=== PATIENT | female | born 1995 | race Hispanic/Latino ===

== ENCOUNTER 2017-09-01 15:07 | Emergency (ER) | payer MEDICAID ==
[2017-09-01 15:44] VITALS: BMI 20.9
--- NOTE | 2017-09-01 17:00 | OBHP ---
Datetime: 09/01/2017 16:51 IP Adm Impression: , intrauterine ; No Active Labor IP Admit Plan: Observation/Evaluation; Discharge home Admit Comment, IP Provider: Patient is a 22-year-old 2 para 1 estimated gestational age 26 w eeks patient presents to the emergency department complaining of decreased movement lower abdom inal discomfort for several days patient denies any dysuria frequency hesitancy patient denies any va ginal bleeding patient reports her care has been intermittent due to insurance issues. Past medical history asthma Medications inhaler Social history denies alcohol tobacco use care previous normal spontaneous vaginal delivery 2016 male full-term care with Dr. Iban Lindo Review of systems patient denies headache chest pain shortness of breath palpitations nausea vomit ing diarrhea vaginal bleeding. Cold intolerance easy bruisability musculoskeletal or neurological com plaints Vital signs stable afebrile Physical exam see notes Intrauterine at 26 weeks Maternal discomfort related to intrauterine gestation Bedside sonogram vertex presentation and adequate fluid good movement. tone Patient was advised to follow up with Dr. Iban Lindo labor precautions provided Pelvic Type - PN: Adequate Extremities - PN: Normal Abdomen - PN: Normal Back - PN: Normal Breast - PN: Normal Lungs - PN: Normal Heart - PN: Normal Thyroid - PN: Normal Neurologic - PN: Normal HEENT - PN: Normal General - PN: Normal FHR - Baseline A Provider: 145 Gestation - Est Wks by US: 26.0 Pool Provider: Negative EGA AdmitDate IP: 27.2 Vital Signs Provider: Reviewed IP Chief Complaint: Maternal discomfort NICHD Variability Prov Fetus A: Moderate 6-25bpm NICHD Accel Fetus A IP Provider: 10X10 FHR Category Provider Fetus A: Category I NICHD Decel Fetus A IP Provider: None Dilatation, Provider: 0 Effacement, Provider: 0 Station, Provider: 0 Genitourinary Exam: Normal DTRs - PN: Normal
[2017-09-01 21:48] VITALS: BP 90/52; PULSE 89
== END 2017-09-01 17:00 | disposition home or self-care (01) ==
LOC: H.EROB2 15:07
DX: O26.92 Pregnancy related conditions, unspecified, second trimester (principal); R10.2 Pelvic and perineal pain; Z3A.26 26 weeks gestation of pregnancy; O36.8120 Decreased fetal movements, second trimester, not applicable or unspecified

== ENCOUNTER 2017-11-21 09:19 | Emergency (ER) | payer MEDICAID ==
[2017-11-21 12:37] VITALS: BMI 23.6
[2017-11-21 17:32] VITALS: BP 107/62; PULSE 95; RESP 17; TEMP 98.2; O2SAT 99
== END 2017-11-21 13:00 | disposition home or self-care (01) ==
LOC: H.EROB2 09:19 → H.L&D 09:37 → H.EROB2 13:00
DX: O47.1 False labor at or after 37 completed weeks of gestation (principal); O26.93 Pregnancy related conditions, unspecified, third trimester; R10.2 Pelvic and perineal pain; Z3A.38 38 weeks gestation of pregnancy

== ENCOUNTER 2017-11-24 20:35 | Inpatient (IN) | payer MEDICAID ==
[2017-11-24] MEDS ORDERED: Lactated Ringer's 1,000 ML IV SCH (21:45)
[2017-11-24] MEDS ORDERED: Oxytocin 30 UNITS in Sodium Chloride 0.9% 500 ML IV SCH (21:45)
[2017-11-24 22:12] LABS: BASO % 0.3 % (0.0-2.0); EOS # 0.1 K/uL (0.0-0.7); EOS % 0.8 % (0.0-4.0); HEMOGLOBIN 11.5 g/dL (12.0-16.0); LYMPH # 1.5 K/uL (1.0-4.3); LYMPH % 13.2 % (20.0-40.0); MEAN CELL VOLUME 88.4 fl (81.0-99.0); MEAN CORPUSCULAR HEMOGLOBIN 28.9 pg (27.0-31.0); MEAN CORPUSCULAR HGB CONC 32.7 g/dL (33.0-37.0); MEAN PLATELET VOLUME 9.5 fl (7.2-11.7); MONO # 0.9 K/uL (0.0-0.8); MONO % 7.5 % (0.0-10.0); NEUT % 78.2 % (50.0-75.0); RBC 3.99 Mil/uL (3.80-5.20); RED CELL DISTRIBUTION WIDTH 13.8 % (11.5-14.5); WHITE BLOOD COUNT 11.6 K/uL (4.8-10.8)
[2017-11-25 06:38] LABS: HEMOGLOBIN 11.5 g/dL (12.0-16.0); MEAN CELL VOLUME 88.5 fl (81.0-99.0); MEAN CORPUSCULAR HEMOGLOBIN 28.6 pg (27.0-31.0); MEAN CORPUSCULAR HGB CONC 32.4 g/dL (33.0-37.0); RED CELL DISTRIBUTION WIDTH 13.5 % (11.5-14.5); WHITE BLOOD COUNT 17.9 K/uL (4.8-10.8)
[2017-11-25] MEDS ORDERED: Influenza Vaccine 18yr & older 0.5 ML/45 MCG SYR IM ONE (08:50)
[2017-11-25] MEDS ORDERED: Pneumococcal 23-Valent Vaccine IM ONE (09:07)
--- NOTE | 2017-11-26 08:06 | OBPPN ---
Datetime: 11/26/2017 06:37 PP Pain Prov: Within normal limits PP Nausea Prov: Denies PP Flatus Prov: Yes PP BM Prov: No PP Breasts Prov: Not Done PP Heart Prov: Normal PP Lungs Prov: Normal PP Abdomen/Uterus Prov: Normal PP Lochia Prov: Normal PP Vulva/Perineum Prov: Not Done PP CVA Tenderness Prov: Normal PP Extremities Prov: Normal PP C/S Incision Prov: Not Applicable PP Progress Prov: Abnormal PP Comments Phys Exam Prov: pt elects to only formula feed. PP Impression Prov: Normal progression PP Plan Prov: Continue present management PP Progress Note Prov: PPD 1 S: 22 yo s/p NVD on 11/25/2017 at 01:57. Pt. is seen and examined at bedside this AM. No overnight events. Pt reports occasional abdominal pain, but well controlled with pain meds. Pt is amb ulating without any difficulties. Bottle feeding baby. Tolerating PO diet. Lochia is similar to light menses in volume. Voiding freely, no bowel movement, but passing gas per rectum. Denies fever, chill s, diarrhea, nausea, vomiting, chest pain, dyspnea, and dizziness. O: VS: stable GEN: NAD Cardio: S1S2, no M/G/R Resp: clear breath sounds b/l Abdomen: BS+, NT, Uterus is firm and at the level of the umbilicus. EXT: No edema, calves nontender NEURO/PSYCHI: AAOx3, no grossly focal deficit, preserved affect and mood. Assessment/Plan: 22 yo s/p NVD on 11/25/2017 at 01:57. Pt remains afebrile, tolerating pa in with medication, tolerating PO intake, doing well on PPD1. OOB with caution SCDs for DVT prophylaxis, pt ambulating Ibuprofen 600mg for pain. Colace 100mg PO BID/Senokot 17.2 mg qHS for constipation Encourage ambulating and consider F/u CBC post-delivery: pending Anticipated d/c to home, 11/27/2017. Case dw OB attending --- Luke Villatoro MD PGY-1 OB Hospitalist Addendum: Pt seen and examined by me. Agree w/ above. PPD1 s/p , doing well, bottle feeding. Continue current care. (ES) IP PP Procedures: None Vital Signs Provider PP: Reviewed; Within Normal Limits
[2017-11-26] MEDS ORDERED: Measles, Mumps, and Rubella 0.5 ML VIAL SC ONE (09:07)
[2017-11-27] MEDS ORDERED: Measles, Mumps, and Rubella 0.5 ML VIAL SC ONE (09:07)
--- NOTE | 2017-11-27 13:14 | OBPPN ---
Datetime: 11/27/2017 07:30 PP Pain Prov: Within normal limits PP Nausea Prov: Denies PP Flatus Prov: Yes PP BM Prov: Yes PP Breasts Prov: Not Done PP Heart Prov: Normal PP Lungs Prov: Normal PP Abdomen/Uterus Prov: Normal PP Lochia Prov: Normal PP Vulva/Perineum Prov: Not Done PP CVA Tenderness Prov: Normal PP Extremities Prov: Normal PP C/S Incision Prov: Not Applicable PP Progress Prov: Abnormal PP Comments Phys Exam Prov: pt prefers to not breast feed. educated and encouraged pt with benefits of breast milk/colostrum PP Impression Prov: Normal progression PP Plan Prov: Discharge PP Progress Note Prov: PPD 2 S: 22 yo s/p NVD on 11/25/2017 at 01:57. Pt. is seen and examined at bedside this AM. No overnight events. Pt reports occasional abdominal pain, but well controlled with pain meds. Pt is amb ulating without any difficulties. Bottle feeding baby. Tolerating PO diet. Lochia is similar to light menses in volume. Voiding freely, with bowel movement, and passing gas per rectum. Denies fever, chi lls, diarrhea, nausea, vomiting, chest pain, dyspnea, and dizziness. O: VS: stable GEN: NAD Cardio: S1S2, no M/G/R Resp: clear breath sounds b/l Abdomen: BS+, NT, Uterus is firm and at the level of the umbilicus. EXT: No edema, calves nontender NEURO/PSYCHI: AAOx3, no grossly focal deficit, preserved affect and mood. Assessment/Plan: 22 yo s/p NVD on 11/25/2017 at 01:57. Pt remains afebrile, tolerating pa in with medication, tolerating PO intake, doing well on PPD2. OOB with caution SCDs for DVT prophylaxis, pt ambulating Ibuprofen 600mg for pain. Colace 100mg PO BID/Senokot 17.2 mg qHS for constipation Encourage ambulating and consider F/u CBC post-delivery: 11.5/35.4 Anticipated d/c to home, 11/27/2017. Case dw OB attending --- Luke Villatoro MD PGY-1 obh addendum: pt seen _ examined by me. agree w/ above assessment and plan. benefits of d/w pt. interested in depo- alt forms of contracep d/w pt. IP PP Procedures: None Vital Signs Provider PP: Reviewed; Within Normal Limits
--- NOTE | 2017-11-27 13:16 | OBDCSUM ---
Datetime: 11/27/2017 08:26 Discharged to, Provider: Home Follow up at, Provider: [facility] Disch Instr Activity: Normal activity; May Shower Disch Instr Diet: Regular Discharge Instructions, Provider: Routine instructions given Discharge Diagnosis, Provider: Term Delivered Discharge Time: 11/27/2017 10:00 Follow up in weeks, Provider: 4-6 weeks pp Disch Referrals: None Contraception discussed, Prov: Yes Disch Activity Restrictions: No sexual activity; Nothing in vagina - [place], tampons, douche Discharge Comment, Provider: Discharge Summary DOA: 11/25/2017 EGA: 39.2 Diagnosis: NVD Term Risk factors: none Summary of : 22 yo F L_D summary DOL: 11/25/2017 at 01:57 NVD NB: M : 8/9 Weight: 3230g PP summary No serious complications during PP. Lochia= menses, mild pain, controlled with medications Rubella immune, Tdap Blood type: O+ CBC pp: 11.5/35.4 Discharge Date: 11/27/2017 Time 10:00 AM Discharge Instructions: -encourage -Ibuprofen for pain PRN -Senokot 17.2 mg qHS for constipation -Ambulate as tolerated -f/u NB visit 3-7 days w/ community engagement specialist and PP visit 4-6 weeks with OB case dw OB attending --- Luke Villatoro MD PGY-1 benefits of d/w pt. interested in depo- alt forms of contracep d/w pt. Contraception after Delivery: Depo-Provera Datetime: 11/21/2017 13:00 Disch Instr Activity: Normal activity
[2017-11-27 22:26] VITALS: BP 106/63; PULSE 99; RESP 20; TEMP 99.2; O2SAT 99
== END 2017-11-27 15:25 | disposition home or self-care (01) | DRG 373 ==
LOC: H.EROB2 20:35 → H.L&D 21:30 → H.OB/GYN 11-25 04:10
PROVIDERS: ADMIT Obstetrics & Gynecology Gynecology; ATTEND Obstetrics & Gynecology Gynecology
PROC: 4A1HXCZ Monitoring of Products of Conception, Cardiac Rate, External Approach (ICD-10-PCS; 2017-11-24)
PROC: 10E0XZZ Delivery of Products of Conception, External Approach (ICD-10-PCS; principal; 2017-11-25)
DX: O69.81X0 Labor and delivery complicated by cord around neck, without compression, not applicable or unspecified (principal); K59.00 Constipation, unspecified; Z37.0 Single live birth; Z3A.39 39 weeks gestation of pregnancy